=== PATIENT | female | born 1985 | race Caucasian/White ===

== ENCOUNTER 2025-05-11 08:23 | Outpatient (CLI) | payer OTHER, SELFPAY ==
--- OUTSIDE RECORDS SUMMARY | 2025-05-11 08:36 | XMS_ITS | Clinical Summary ---
Author Organization [facility] [address] Address [address] [place] [id number] Care Team Providers Care Rod Buster Name Role Phone Linda Bradford MD Primary Care Provider + Allergies No known active allergies Medications penicillin v potassium (VEETID) 500 mg tablet Take 500 mg by mouth every 12 (twelve) hours for 10 days 08/14/2022 Active Active Problems No known active problems Encounters Date Type Department Care Team Description 05/01/2025 4:40 PM TRAFFIC SIGNAL TECHNICIAN - 05/01/2025 11:59 PM TRAFFIC SIGNAL TECHNICIAN Hospital Encounter [facility] [address] [place] [id number] Screening mammogram, encounter for Discharge Disposition: Discharge to home or self care from Last 3 Months Family History Medical History Relation Name Comments Breast cancer Maternal Grandmother Breast cancer Mother Breast cancer Mother's Sister 1 Breast cancer Mother's Sister 2 Breast cancer Sister Relation Name Status Comments Maternal Grandmother Mother Mother's Sister 1 Mother's Sister 2 Alive Sister Social History Tobacco Use Types Packs/Day Years Used Date Smoking Tobacco: Never Assessed Comments No Sex and Gender Information Value Date Recorded Sex Assigned at Not on file Legal Sex Female 12:02 PM CDT Gender Identity Not on file Sexual Orientation Not on file Obstetrics History Para Term AB IAB SAB Ectopic Multiple Livin g Live Births 4 4 Date Outcome GA Total Labor Labor/2nd/3rd Weight Sex Type Anes PTL Carly A1 A5 Name Clin Last Filed Vital Signs Vital Sign Reading Time Taken Comments Blood Pressure 108/68 12/11/2022 11:42 AM CDT Pulse 65 12/11/2022 11:42 AM CDT Temperature 37 C (98.6 F) 12/11/2022 11:42 AM CDT Respiratory Rate 18 12/11/2022 11:42 AM CDT Oxygen Saturation 98% 12/11/2022 11:42 AM CDT Inhaled Oxygen Concentration - - Weight 57.4 kg (126 lb 8 oz) 12/11/2022 11:42 AM CDT Height 160 cm (5' 2.99) 12/11/2022 11:42 AM CDT Body Mass Index 22.41 12/11/2022 11:42 AM CDT Plan of Treatment Health Maintenance Due Date Last Done Comments Cervical Cancer Screening 1985 Depression Screening 1985 Hepatitis C Screening 1985 Varicella Vaccines (1 of 2 - 13+ 2-dose series) 1998 Hepatitis B Screening 2003 Regular Well Visit/Exam 18-64 2003 HPV Vaccines (1 - 3-dose SCDM series) 01/16/2012 Covid-19 Vaccine ( season) 2025 03/21/2022, 04/04/2021, 09/02/2020, Additional history exists Breast Cancer Screening-Mammogram 05/01/2026 05/01/2025 DTaP/Tdap/Td Vaccine (2 - Td or Tdap) 12/02/2027 12/01/2017 Influenza Vaccine Completed 04/27/2025, , 05/22/2022, Additional history exists Pneumococcal vaccine <65 Aged Out No longer eligible based on patient's age to complete this topic Procedures Procedure Name Priority Date/Time Associated Diagnosis Comments SCREENING MAMMOGRAM BILATERAL W ELA Schedule Routine, Read Routine (OP Routine) 05/01/2025 4:51 PM TRAFFIC SIGNAL TECHNICIAN Screening mammogram, encounter for from Last 3 Months Results * Screening Mammogram Bilateral [facility] (05/01/2025 4:51 PM TRAFFIC SIGNAL TECHNICIAN) Anatomical Region Laterality Modality Breast Bilateral Mammography Impressions 05/01/2025 11:20 PM TRAFFIC SIGNAL TECHNICIAN Bilateral No evidence of malignancy in either breast. OVERALL BI-RADS FINAL ASSESSMENT: 1 - Negative RECOMMENDATION: Recommend bilateral annual screening mammography. If supplemental screening is desired for heterogeneously dense breast tissue, consider breast MRI every 1-2 years. If breast MRI cannot be performed, contrast-enhanced mammography is an alternative. Narrative 05/01/2025 11:20 PM TRAFFIC SIGNAL TECHNICIAN EXAMINATION: Screening Mammogram Bilateral W [facility]: 05/01/2025 COMPARISON: This is the patient's baseline mammogram. TECHNIQUE: Mammography was performed with 2D and 3D digital breast tomosynthesis (DBT) images. CAD was utilized. BREAST PARENCHYMAL COMPOSITION: The breasts are heterogeneously dense, which may obscure small masses. FINDINGS: No suspicious mass, suspicious calcifications, or architectural distortion is seen in either breast. us Self Screening Mammogram IMG MAMMO PROCEDURES Fi nal Result from Last 3 Months [facility] Address: [facility] [id number] [place] [id number] [facility] Care Teams Rod Buster Relationship Specialty Start Date End Date Linda Bradford MD [address] [place] [address] [address] PCP - General Family Medicine 04/27/25
[2025-05-11 14:22] LABS: Hematocrit 42.6 % (37.0-47.0); Hemoglobin 13.9 g/dL (12.0-15.0); Immature Granulocyte Percent A 0.3 % (0-0.5); Lymphocytes Absolute Auto 2.40 K/mm3 (0.9-3.2); Mean Corpuscular HGB Conc 32.6 g/dl (32-36); Mean Corpuscular Hemoglobin 30.3 pg (26-34); Mean Corpuscular Volume 93.0 fl (80-100); Nucleated Red Blood Cells Absolute Auto 0.000 K/mm3 (0.0-0.012); Nucleated Red Blood Cells Perc 0.0 % (0.0-0.2); Platelet Count Result 214 k/mm3 (150-375); Red Blood Count 4.58 M/mm3 (4.2-5.4); White Blood Count 7.0 K/mm3 (4.5-10.0)
[2025-05-11 14:39] LABS: Alanine Aminotransferase 29 U/L (6-35); Albumin Level 4.3 g/dL (3.5-5.1); Alkaline Phosphatase 86 U/L (38-126); Anion Gap 4 mmol/L (4-12); Aspartate Amino Transferase 43 U/L (14-36); Bilirubin,Total 0.6 mg/dL (0.2-1.3); Blood Urea Nitrogen 17 mg/dL (7-17); Calcium 9.1 mg/dL (8.4-10.2); Carbon Dioxide 27 mmol/L (22-30); Chloride 105 mmol/L (98-107); Cholesterol 215 mg/dL (0-200); Estimated Glomerular Filt Rate > 60; Glucose 71 mg/dL (65-110); HDL Direct 65 mg/dL; Sodium 136 mmol/L (137-145); Total Protein 7.6 g/dL (6.3-8.2); Triglycerides 84 mg/dL (<150)
[2025-05-11 14:46] LABS: Potassium 4.2 mmol/L (3.4-5.0)
== END 2025-05-11 08:24 | disposition home or self-care (01) ==
LOC: ANHGOSHLAB 08:24
PROVIDERS: PCP Family Medicine; Visit Provider Family Medicine
DX: Z00.00 Encounter for general adult medical examination without abnormal findings (principal)
CPT/HCPCS: 36415; 80053; 80061; 85025